=== PATIENT | female | born 1985 | race Caucasian/White ===

== ENCOUNTER 2022-11-22 23:38 | Inpatient (IN) ==
[2022-11-22] MEDS ORDERED: OXYTOCIN 30 UNITS/500 ML BAG IV PRN (23:43)
[2022-11-22] MEDS ORDERED: LIDOCAINE 1% LOCAL 20 ML VIAL INFIL PRN (23:43)
[2022-11-22] MEDS ORDERED: LACTATED RINGER'S 1,000 ML IV PRN (23:43)
[2022-11-22] MEDS ORDERED: Patient's ALLERGY Info needs ENTERED STA (23:50)
--- NOTE | 2022-11-22 23:50 | History & Physical Report ---
Date of Service November 22, 2022 History of Present Illness Chief Complaint: SROM at 10:30 PM with onset of labor Primary Care Provider: NO PCP 37 F [id number] at term 40.4 with SROM at 10:30 PM tonight and ongoing labor. GBS is negative Patient History OB History x3 [place] History neg Review of Systems All systems reviewed & are unremarkable except as noted in HPI & below Physical Exam Constitutional: WD/WN, vitals as above Eyes: PERRL, conjunctivae normal, anicteric sclerae Respiratory: normal respiratory effort, lungs clear to auscultation Cardiovascular: RRR, no murmur, no edema Gastrointestinal (Abdomen): Inspection/Auscultation: abdomen normal to inspection Musculoskeletal: Extremities: extremities normal to inspection Skin: no rashes, warm and dry Neurologic: patellar DTR's 2+ bilat, sensation intact Psychiatric: A+Ox3, euthymic affect Genitourinary: no vaginal lesions, no adnexal mass OB Exam Abdomen: + fundal height and + vertex Manual OB Exam: + cervical dilation 5 cm and 6 cm and + amniotic fluid clear OB Exam Monitor Tracing: + external FHT monitor used, + external uterine monitor used, + category I and + normal FHT variability Code Status & VTE Plan VTE Prophylaxis Plan VTE Prophylaxis will be ordered: No Monitoring External Monitor Cat 1
[2022-11-23 00:18] LABS: Hematocrit (blood only) 34.9 % (37.0-47.0); Hemoglobin 11.9 g/dl (12.0-16.0); Mean Corpuscular Hemoglobin 31.5 pg (25.0-34.0); Mean Corpuscular Hgb Conc 34.1 g/dL (32.0-36.0); Mean Corpuscular Volume 92.3 fL (80.0-100.0); Platelet Count 134 K/uL (130-400); RDW Coefficient of Variation 15.5 % (11.5-14.5); RDW Standard Deviation 52.1 fL (36.4-46.3); Red Blood Count 3.78 M/uL (4.20-5.40)
--- NOTE | 2022-11-23 01:12 | Delivery Summary ---
Vaginal Delivery Summary Date of Service November 23, 2022 Vaginal Delivery Summary Delivery Note live male LIAM over intact perineum with delayed cord clamping and Apgars 8/9 weight pending. Cord blood obtained followed by spontaneous delivery of intact placenta. No tears. EBL 100 ml. Final sponge and instrument count are correct. Mom and baby stablr
[2022-11-23] MEDS ORDERED: OXYTOCIN 30 UNITS/500 ML BAG IV PRN (01:19)
[2022-11-23] MEDS ORDERED: HYDROCORTISONE ACETATE 25 MG SUPP PR PRN (01:19)
[2022-11-23] MEDS ORDERED: DIPHTHERIA/TETANUS/PERTUSSIS Vaccine (Tdap, Age 7+yrs) 0.5mL SYR/VL IM ONE (01:19)
[2022-11-23] MEDS ORDERED: ACETAMINOPHEN 325 MG TAB PO PRN (01:19)
[2022-11-23] MEDS ORDERED: bisacodyL 10 MG SUPP PR PRN (01:19)
[2022-11-23] MEDS ORDERED: BENZOCAINE 20% SPRY 85 APPLN/85 GM CAN EXT PRN (01:19)
[2022-11-23] MEDS: IBUPROFEN 600 MG TAB PO PRN ×3 (03:21→11:57)
[2022-11-23] MEDS: FERROUS SULFATE 325 MG TAB PO SCH (08:29)
[2022-11-23] MEDS: PRENATAL VITAMIN 1 TAB PO SCH (08:29)
[2022-11-23] MEDS: DOCUSATE SODIUM 100 MG CAP PO SCH ×2 (08:29→19:20)
[2022-11-24] MEDS: IBUPROFEN 600 MG TAB PO PRN (01:07)
[2022-11-24 07:05] LABS: Hematocrit (blood only) 38.2 % (37.0-47.0); Hemoglobin 12.7 g/dl (12.0-16.0); Mean Corpuscular Hemoglobin 31.4 pg (25.0-34.0); Mean Corpuscular Hgb Conc 33.2 g/dL (32.0-36.0); Mean Corpuscular Volume 94.3 fL (80.0-100.0); Mean Platelet Volume 11.4 fL (9.4-12.4); Platelet Count 162 K/uL (130-400); RDW Coefficient of Variation 15.7 % (11.5-14.5); RDW Standard Deviation 54.7 fL (36.4-46.3); Red Blood Count 4.05 M/uL (4.20-5.40); White Blood Count 11.16 K/ul (4.8-10.8)
[2022-11-24] MEDS: FERROUS SULFATE 325 MG TAB PO SCH (08:11)
[2022-11-24] MEDS: DOCUSATE SODIUM 100 MG CAP PO SCH (08:11)
[2022-11-24] MEDS: PRENATAL VITAMIN 1 TAB PO SCH (08:11)
--- NOTE | 2022-11-24 09:11 | Obstetrical Progress Note ---
Date of Service November 24, 2022 Subjective Ambulation: ambulating normally Voiding: no voiding problems Passing Gas:: Yes Diet Tolerance:: regular diet Lochia:: Small Feeding Type:: breast feeding Current Pain Level(1-10): 0 doing well Physical Exam Constitutional WD/WN, vitals as above Gastrointestinal (Abdomen) Inspection/Auscultation: abdomen normal to inspection fundus firm below U Skin no rashes, warm and dry Neurologic patellar DTR's 2+ bilat, sensation intact Psychiatric A+Ox3, euthymic affect Results & Data Vital Signs (Past 12 Hours) Vital Signs Temp Pulse Resp BP Pulse Ox O2 Del Method 11/23/22 22:31 36.7 C 69 18 116/74 97 Room Air Diagnostic Findings 11/22/22 11/24/22 23:59 06:46 WBC 12.90 H 11.16 H RBC 3.78 L 4.05 L Hgb 11.9 L 12.7 Hct 34.9 L 38.2 MCV 92.3 94.3 MCH 31.5 31.4 MCHC 34.1 33.2 RDW Std Deviation 52.1 H 54.7 H RDW Coeff of Maximus 15.5 H 15.7 H Plt Count 134 162 MPV 12.0 11.4
[2022-11-24] MEDS ORDERED: bisacodyL 5 MG TABEC PO SCH (20:00)
== END 2022-11-24 10:43 | disposition home or self-care (01) | DRG 807 ==
LOC: OPB 23:38 → 4S1 23:42 → 4E2 11-23 03:58